=== PATIENT | female | born 1995 | race Hispanic/Latino ===

== ENCOUNTER 2018-05-12 08:45 | Emergency (ER) | payer OTHER ==
[~2018-05-12] VITALS: Ht 157.5 cm; Wt 115.3 kg
[~2018-05-12 08:45] MED LIST: AMOXICILLIN875 MG PO; DOCUSATE SODIU100 MG PO; FERROUS SULFAT325 MG PO; IBUPROFEN800 MG PO; LIDOCAINE HCL20 ML MM; MEDROL DOSEPAK4 MG PO; NAPROSYN500 MG PO; NO MEDS; NOHOMEMEDS; NORCO 5/3251 TABLET PO; OXYCODONE-APAP1 EACH PO; PEPCID20 MG PO; PREDNISONE20 MG PO; PRENATAL TABLE1 EAC3 PO; PROMETHAZINE HC25 M1 PO; TESSALON200 MG PO; TRAMADOL HCL50 MG PO; TYLENOL REGULA325 MG; ZITHROMAX Z-PA250 MG PO; ZITHROMAX250 MG PO
[2018-05-12 09:30] LABS: HEMATOCRIT 41.8 % (36.0-46.0); HEMOGLOBIN 13.6 G/DL (11.9-15.5); MCH 25.3 PG (29.0-34.0); MCHC 32.5 G/DL (30.0-36.0); MCV 77.8 FL (83-99); PLATELET COUNT 167 K/uL (156-360); RBC DIS.WIDTH-CV 13.8 % (11.8-14.6); RED BLOOD COUNT 5.37 M/uL (3.80-5.20); WHITE BLOOD COUNT 7.3 K/uL (4.1-10.2)
[2018-05-12 09:37] LABS: CHLORIDE 105 mEq/L (99-109); POTASSIUM 4.1 mEq/L (3.7-5.4); SODIUM 139 mEq/L (136-147)
[2018-05-12 09:38] LABS: GLUCOSE 104 mg/dL (70-99)
[2018-05-12 09:42] LABS: CREATININE 0.8 mg/dL (0.6-1.3); GFR ESTIMATE (CALCULATED) > 59 mL/min/
[2018-05-12 09:43] LABS: UREA NITROGEN (BUN) 8 mg/dL (9-23)
[2018-05-12 09:52] LABS: QUANTITATIVE HCG < 4.0 MIU/ML
[2018-05-12 11:26] VITALS: BP 127/88
== END 2018-05-12 11:25 | disposition home or self-care (01) ==
LOC: EME 08:45
PROVIDERS: Emergency Medicine
DX: G43.909 Migraine, unspecified, not intractable, without status migrainosus (principal); J45.909 Unspecified asthma, uncomplicated; Z86.69 Personal history of other diseases of the nervous system and sense organs
CPT/HCPCS: 80048; 84702; 85027; 99281; 99284; J0780; J1100; J1200; J1885; J7030